=== PATIENT | female | born 1940 | race Caucasian/White ===

== ENCOUNTER 2021-05-22 09:12 | Emergency (ER) | payer MEDICARE, MEDICAID ==
[2021-05-22] MEDS ORDERED: Sodium Chloride 0.9% 1,000 ML IV ONE (09:47)
[2021-05-22] MEDS ORDERED: Ondansetron 4 MG/2 ML SDV IVPUSH ONE (09:47)
--- NOTE | 2021-05-22 10:27 | EDM.PDOC ---
ED HPI GENERAL MEDICAL PROBLEM - General Chief Complaint: Abdominal Pain Stated Complaint: N/V Time Seen by Provider: 05/22/21 09:30 Source of Information: Reports: Patient, Family (daughter) History Limitations: Reports: No Limitations - History of Present Illness INITIAL COMMENTS - FREE TEXT/NARRATIVE: Albertina is a very pleasant 80-year-old female presents with her daughter with complaints of nausea, dizziness and weakness over the last 4 days. She denies any significant abdominal pain or vomiting. No diarrhea. No fever or chills. No shortness of breath. She denies any recent illnesses. No chest pain. But has been feeling increasingly weak with associated nausea. Her daughter has been trying to supplement her with water and Gatorade. She reports no problems with voiding or decreased urination. Report no significant illness currently at the colony. She is not complaining of any respiratory complaints. She does note some congestion and coughing.. Onset: Gradual Onset Date: 05/18/21 Duration: Day(s):, Constant Location: Reports: Generalized Quality: Reports: Ache Severity: Moderate Improves with: Reports: None Worsens with: Reports: None Associated Symptoms: Reports: Cough, Nausea/Vomiting (As he had no vomiting), Weakness. Denies: Chest Pain, Diaphoresis, Fever/Chills, Headaches, Shortness of Breath - Related Data Allergies Allergy/AdvReac Type Severity Reaction Status Date / Time No Known Allergies Allergy Verified 05/22/21 10:31 ED ROS GENERAL - Review of Systems Review Of Systems: See Below Constitutional: Reports: Weakness. Denies: Fever, Chills, Diaphoresis HEENT: Reports: No Symptoms Respiratory: Reports: Cough. Denies: Shortness of Breath Cardiovascular: Denies: Chest Pain, Blood Pressure Problem, Dyspnea on Exertion Endocrine: Reports: No Symptoms GI/Abdominal: Reports: Nausea. Denies: Abdominal Pain, Black Stool, Bloody Stool, Constipation, Diarrhea, Vomiting : Denies: Discharge, Dysuria, Flank Pain, Frequency, Hematuria Musculoskeletal: Reports: No Symptoms Skin: Reports: No Symptoms Neurological: Reports: Weakness Psychiatric: Reports: No Symptoms Hematologic/Lymphatic: Reports: No Symptoms Immunologic: Reports: No Symptoms ED EXAM, GENERAL - Physical Exam Exam: See Below Exam Limited By: Altered Mental Status General Appearance: Alert, WD/WN, Mild Distress Eye Exam: Bilateral Eye: PERRL (Pulses are equal) Ears: Hearing Grossly Normal Nose: Normal Inspection, Normal Mucosa Throat/Mouth: Normal Inspection, Normal Oropharynx, Normal Voice, No Airway Compromise Head: Atraumatic, Normocephalic Neck: Normal Inspection, Supple, Non-Tender, Full Range of Motion. No: Lymphadenopathy (L), Lymphadenopathy (R) Respiratory/Chest: No Respiratory Distress, Normal Breath Sounds, No Accessory Muscle Use, Decreased Breath Sounds, Crackles (Bilateral bases). No: Rales, Rho nchi, Wheezing, Accessory Muscle Use, Retractions, Splinting, Prolonged Expiration Cardiovascular: Normal Peripheral Pulses, Regular Rate, Rhythm, No JVD Peripheral Pulses: 2+: Carotid (L), Carotid (R) GI/Abdominal: Normal Bowel Sounds, Soft, Non-Tender, No Organomegaly, No Distention Back Exam: Normal Inspection Extremities: Normal Inspection, No Pedal Edema Neurological: Alert, Oriented, No Motor/Sensory Deficits Psychiatric: Normal Affect, Normal Mood Skin Exam: Warm, Dry, Intact, Normal Color, No Rash Lymphatic: No Adenopathy Course - Vital Signs Last Recorded V/S: Last Vital Signs Temp 96.9 F 05/22/21 09:30 Pulse 68 05/22/21 12:00 Resp 16 05/22/21 12:00 BP 134/61 05/22/21 12:00 Pulse Ox 95 05/22/21 12:00 - Orders/Labs/Meds Labs: Laboratory Tests 05/22/21 05/22/21 05/22/21 Range/Units 09:46 09:47 11:35 WBC 3.99 L (5.00-10.00) 10^3/uL RBC 4.39 (3.80-5.50) 10^6/uL Hgb 12.7 (12.0-16.0) g/dL Hct 39.1 (37.0-47.0) % MCV 89.1 (82.0-92.0) fL MCH 28.9 (27.0-31.0) pg MCHC 32.5 (32.0-36.0) g/dL RDW 13.4 (11.5-14.5) % Plt Count 171 (150-400) 10^3/uL MPV 9.3 (7.4-10.4) fL Immature Gran % (Auto) 0.0 (0.0-5.0) % Neut % (Auto) 79.2 H (50.0-70.0) % Lymph % (Auto) 15.0 L (20.0-40.0) % [place] % (Auto) 5.5 (2.0-8.0) % Eos % (Auto) 0.0 L (1.0-3.0) % Baso % (Auto) 0.3 (0.0-1.0) % Neut # (Auto) 3.16 (2.50-7.00) 10^3/uL Lymph # (Auto) 0.60 L (1.00-4.00) 10^3/uL [place] # (Auto) 0.22 (0.10-0.80) 10^3/uL Eos # (Auto) 0.00 L (0.10-0.30) 10^3/uL Baso # (Auto) 0.01 (0.00-0.10) 10^3/uL Immature Gran # (Auto) 0.00 (0.00-0.50) 10^3/uL Sodium 136 (136-145) mmol/L Potassium 4.0 (3.5-5.1) mmol/L Chloride 98 (98-107) mmol/L Carbon Dioxide 31.3 (21.0-32.0) mmol/L Anion Gap 10.7 (5-15) mmol/L BUN 6 L (7-18) mg/dL Creatinine 0.59 (0.51-1.17) mg/dL Est Cr Clr Drug Dosing TNP Estimated GFR (MDRD) > 60 mL/min Glucose 125 (70-140) mg/dL Calcium 8.2 L (8.7-10.3) mg/dL Total Bilirubin 0.3 (0.2-1.0) mg/dL AST 28 (15-37) U/L ALT 31 (14-63) U/L Alkaline Phosphatase 69 (46-116) U/L Total Protein 6.7 (6.4-8.2) g/dL Albumin 3.06 L (3.40-5.00) g/dL SARS CoV-2 RNA Rapid LENNY Positive H (NEGATIVE) Meds: Medications Discontinued Medications Generic Name Dose Route Start Last Admin Trade Name Freq PRN Reason Stop Dose Admin Sodium Chloride 1,000 mls @ 1,000 mls/hr 11/06/21 09:47 05/22/21 10:03 Normal Saline IV 05/22/21 10:46 1,000 mls/hr .BOLUS ONE Administration Ondansetron HCl 4 mg 05/22/21 09:47 05/22/21 10:02 Ondansetron 4 Mg/2 Ml Sdv IVPUSH 05/22/21 09:48 4 mg ONETIME ONE Administration - Radiology Interpretation Free Text/Narrative:: Chest x-ray PA lateral Indication: Cough and congestion Comparison: None Discussion: Cardiomediastinal silhouette is normal in size and contour. Trace of bilateral pleural effusions. Pulmonary hyperinflation. No pneumothorax. Bibasilar segmental atelectasis and or scarring. Multilevel degenerative changes of the thoracolumbar spine Impression: Trace of bilateral pleural effusions. Bibasilar subsegmental atelectasis and or scarring. - Re-Assessments/Exams Free Text/Narrative Re-Assessment/Exam: 05/22/21 12:57 Patient's nausea is resolved. She feels much better and more energetic with 1 L of fluids. Her Covid test is positive. She is maintaining her O2 saturations in the 90s on room air. She is afebrile. Respirations and heart rate are stable. Departure - Departure Time of Disposition: 13:01 Disposition: Home, Self-Care 01 Condition: Fair Clinical Impression: Weakness, SARS-CoV-2 positive - Discharge Information Referrals: Eli Michael PA-C [Primary Care Provider] - Forms: ED Department Discharge Sepsis Event Note (ED) - Focused Exam Vital Signs: Vital Signs Temp Pulse Resp BP Pulse Ox 05/22/21 12:00 68 16 134/61 95 05/22/21 11:15 61 18 146/67 H 89 L 05/22/21 10:45 57 L 20 144/65 H 88 L 05/22/21 10:15 59 L 18 156/68 H 88 L 05/22/21 09:45 62 18 144/65 H 94 L 05/22/21 09:30 96.9 F 64 20 144/65 H 93 L - Assessment/Plan Assessment:: 1. SARS Covid positive antigen 2. Weakness 3. Nausea resolved Plan: 1. Symptomatic relief of symptoms. We have discussed the importance of continuation of oral hydration. 2. Tylenol for aches and pains. 3. Isolation for the next 10 to 14 days until symptom are relieved. 4. Return to the emergency room if respiratory difficulties present themselves.
[2021-05-22 10:31] LABS: ANION GAP 10.7 mmol/L (5-15); CHLORIDE,CL 98 mmol/L (98-107); SODIUM,NA 136 mmol/L (136-145)
--- NOTE | 2021-05-22 12:12 | CR ---
[id number] RAD/RAD Chest PA And Lateral EXAM: RAD Chest PA And Lateral INDICATION: COUGH,CONGESTION. COMPARISON: None available. DISCUSSION: Cardiomediastinal silhouette is normal in size and contour. Trace bilateral pleural effusions. Pulmonary hyperinflation. No pneumothorax. Bibasilar subsegmental atelectasis and/or scarring. Multilevel degenerative changes of the thoracolumbar spine IMPRESSION: Trace bilateral pleural effusions. Bibasilar subsegmental atelectasis and/or scarring. Prasad Morales DO 05/22/21 1210 Thank you for allowing us to participate in the care of your patient.
== END 2021-05-22 13:27 | disposition home or self-care (01) ==
LOC: KA.ED 09:12
DX: U07.1 COVID-19 (principal); R11.0 Nausea
CPT/HCPCS: 36415; 71046; 80053; 85025; 96374; 99284; 99285-25; J2405; J7030; U0002

== ENCOUNTER 2024-08-08 09:40 | Emergency (ER) | payer MEDICARE, MEDICAID ==
[2024-08-08 10:57] LABS: BASOPHILS ABSOLUTE AUTO 0.03 10^3/uL (0.00-0.10); BASOPHILS PERCENT AUTO 0.5 % (0.0-1.0); EOSINOPHILS ABSOLUTE AUTO 0.04 10^3/uL (0.10-0.30); EOSINOPHILS PERCENT AUTO 0.7 % (1.0-3.0); HEMATOCRIT 29.1 % (37.0-47.0); HEMOGLOBIN 9.5 g/dL (12.0-16.0); IMMATURE GRAN ABSOLUTE AUTO 0.01 10^3/uL (0.00-0.04); IMMATURE GRAN PERCENT AUTO 0.2 % (0.0-0.4); LYMPHOCYTES ABSOLUTE AUTO 1.06 10^3/uL (1.00-4.00); LYMPHOCYTES PERCENT AUTO 17.8 % (20.0-40.0); MEAN CORPUSCULAR HEMOGLOBIN 29.1 pg (27.0-31.0); MEAN CORPUSCULAR HGB CONC 32.6 g/dL (32.0-36.0); MEAN PLATELET VOLUME 9.3 fL (7.4-10.4); MONOCYTES ABSOLUTE AUTO 0.29 10^3/uL (0.10-0.80); MONOCYTES PERCENT AUTO 4.9 % (2.0-8.0); NEUTROPHILS ABSOLUTE AUTO 4.54 10^3/uL (2.50-7.00); NEUTROPHILS PERCENT AUTO 75.9 % (50.0-70.0); PLATELET COUNT,PLT 346 10^3/uL (150-400); RED BLOOD CELL COUNT 3.27 10^6/uL (3.80-5.50); WHITE BLOOD CELL COUNT,WBC 5.97 10^3/uL (5.00-10.00)
[2024-08-08 11:16] LABS: ALBUMIN 1.78 g/dL (3.40-5.00); ANION GAP 14.4 mmol/L (5-15); BILIRUBIN TOTAL 0.8 mg/dL (0.2-1.0); CALCIUM 7.8 mg/dL (8.7-10.3); CARBON DIOXIDE,CO2 22.5 mmol/L (21.0-32.0); CREATININE 0.94 mg/dL (0.51-1.17); EST CRCL DRUG DOSING (CG) 33.14 mL/min; POTASSIUM,K 3.9 mmol/L (3.5-5.1); PROTEIN TOTAL,TP 5.6 g/dL (6.4-8.2)
[2024-08-08] MEDS: Sodium Chloride 0.9% 50 ML IV SCH (11:42)
[2024-08-08] MEDS: Iopamidol 755 Mg/ML 100 ML Bottle IV ONE (11:42)
[2024-08-08 12:54] LABS: APPEARANCE,URINE CLEAR (CLEAR); BILIRUBIN,URINE NEGATIVE (NEGATIVE); COLOR,URINE YELLOW (YELLOW); GLUCOSE,URINE NEGATIVE (NEGATIVE); KETONES,URINE NEGATIVE (NEGATIVE); LEUKOCYTE ESTERASE,URINE NEGATIVE (NEGATIVE); NITRITE,URINE NEGATIVE (NEGATIVE); OCCULT BLOOD,URINE NEGATIVE (NEGATIVE); PROTEIN,URINE NEGATIVE (NEGATIVE); UROBILINOGEN,URINE 0.2 E.U./dL (0.2-1.0)
[2024-08-08 13:04] LABS: EPITHELIAL CELLS,URINE RARE /LPF; RBC,URINE 0-5 /HPF (0-5); WBC,URINE 0-5 /HPF (0-5)
[2024-08-08 13:05] LABS: BACTERIA,URINE NOT SEEN /HPF (NONE TO FEW)
== END 2024-08-08 14:51 ==
LOC: KA.ED 09:40
DX: R18.8 Other ascites (principal); I10 Essential (primary) hypertension; Z88.8 Allergy status to other drugs, medicaments and biological substances; Z79.899 Other long term (current) drug therapy
CPT/HCPCS: 36415; 74177; 80053; 81001; 85025; 99284; J3490; Q9967